=== PATIENT | female | born 2000 | race Two or more races ===

== ENCOUNTER 2024-07-12 17:38 | Emergency (ER) | payer OTHER ==
[~2024-07-12] VITALS: Ht 160 cm; Wt 59.8 kg
[2024-07-12 18:56] VITALS: BP 108/72; PULSE 89; RESP 17; TEMP 99.3; O2SAT 98
[2024-07-12] MEDS: IBUPROFEN 600 MG TAB PO ONE (19:34)
== END 2024-07-12 20:24 | disposition home or self-care (01) ==
LOC: ER 17:38
DX: S29.012A Strain of muscle and tendon of back wall of thorax, initial encounter (principal); W20.8XXA Other cause of strike by thrown, projected or falling object, initial encounter; Y93.89 Activity, other specified; Y92.89 Other specified places as the place of occurrence of the external cause; Y99.0 Civilian activity done for income or pay
CPT/HCPCS: 72070